=== PATIENT | female | born 2000 | race Caucasian/White ===

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

== ENCOUNTER 2023-11-19 12:36 | Emergency (ER) | payer MEDICAID ==
[2023-11-19 13:29] LABS: COLOR,URINE YELLOW; GLUCOSE,URINE NEGATIVE (NEGATIVE); KETONES,URINE >=80 mg/dL (NEGATIVE); LEUKOCYTE ESTERASE,URINE NEGATIVE (NEGATIVE); NITRITE,URINE NEGATIVE (NEGATIVE); OCCULT BLOOD,URINE NEGATIVE (NEGATIVE); PROTEIN,URINE TRACE mg/dL (NEGATIVE)
[2023-11-19 13:35] LABS: APPEARANCE,URINE HAZY; BILIRUBIN,URINE SMALL (NEGATIVE)
[2023-11-19 13:39] LABS: BACTERIA,URINE 1+ (NEGATIVE); EPITHELIAL CELLS,URINE FEW (NONE-FEW); MUCUS,URINE MODERATE (NONE-MOD); RBC,URINE 0-1 (0-2/HPF); WBC,URINE NONE SEEN (0-5/HPF)
[2023-11-19] MEDS: Ondansetron 4 MG Tab.DIS PO ONE (14:21)
== END 2023-11-19 14:37 | disposition home or self-care (01) ==
LOC: MW.ED 12:36
DX: O21.9 Vomiting of pregnancy, unspecified (principal); O10.019 Pre-existing essential hypertension complicating pregnancy, unspecified trimester; Z3A.00 Weeks of gestation of pregnancy not specified; Z91.040 Latex allergy status
CPT/HCPCS: 81001; 81025; 99284; A9270

== ENCOUNTER 2023-11-23 08:37 | Emergency (ER) | payer MEDICAID ==
[2023-11-23] MEDS ORDERED: Sodium Chloride 0.9% 10 ML Syringe FLUSH PRN (09:40)
[2023-11-23] MEDS ORDERED: Sodium Chloride 0.9% 2.5 ML Syringe FLUSH PRN (09:40)
[2023-11-23] MEDS: Sodium Chloride 0.9% 1,000 ML IV ONE (10:11)
[2023-11-23 10:25] LABS: BASOPHILS ABSOLUTE AUTO 0.02 K/uL (0.00-0.20); BASOPHILS PERCENT AUTO 0.2 % (0.0-1.0); EOSINOPHILS ABSOLUTE AUTO 0.07 K/uL (0.00-0.45); EOSINOPHILS PERCENT AUTO 0.6 % (0.0-6.0); HEMATOCRIT 35.6 % (37.0-47.0); HEMOGLOBIN 11.6 g/dL (12.0-16.0); IMMATURE GRAN ABSOLUTE AUTO 0.04 K/uL (0.00-0.05); IMMATURE GRAN PERCENT AUTO 0.3 % (0.0-0.4); LYMPHOCYTES ABSOLUTE AUTO 2.16 K/uL (1.00-4.80); LYMPHOCYTES PERCENT AUTO 18.7 % (24.0-44.0); MEAN CORPUSCULAR HEMOGLOBIN 28.2 pg (28.0-32.0); MEAN CORPUSCULAR HGB CONC 32.6 g/dL (32.0-36.0); MEAN CORPUSCULAR VOLUME 86.4 fL (83.0-99.0); MEAN PLATELET VOLUME 9.3 fL (9.4-12.3); MONOCYTES ABSOLUTE AUTO 0.54 K/uL (0.00-0.80); MONOCYTES PERCENT AUTO 4.7 % (0.0-8.0); NEUTROPHILS ABSOLUTE AUTO 8.73 K/uL (1.80-7.70); NEUTROPHILS PERCENT AUTO 75.5 % (41.0-71.0); PLATELET COUNT,PLT 314 K/uL (150-400); RED BLOOD CELL COUNT 4.12 M/uL (4.10-5.30); WHITE BLOOD CELL COUNT,WBC 11.56 K/uL (3.9-11.3)
[2023-11-23 11:24] LABS: A/G RATIO 0.8 (0.9-1.6); ALBUMIN 3.2 g/dL (3.4-5.0); BILIRUBIN TOTAL 0.3 mg/dL (0.2-1.0); CALCIUM 8.9 mg/dL (8.5-10.1); CARBON DIOXIDE,CO2 26.6 mmol/L (21.0-32.0); CREATININE 0.5 mg/dL (0.6-1.0); EST CRCL DRUG DOSING (CG) 171.62 mL/min; POTASSIUM,K 3.7 mmol/L (3.5-5.1)
[2023-11-23] MEDS: Lidocaine 1% 5 ML VIAL INJECT ONE (11:38)
[2023-11-23] MEDS: Cefdinir 300 MG Cap PO ONE (12:13)
[2023-11-23] MEDS: Ibuprofen 600 MG Tab PO ONE (12:13)
== END 2023-11-23 12:34 | disposition home or self-care (01) ==
LOC: MW.ED 08:37
DX: O99.711 Diseases of the skin and subcutaneous tissue complicating pregnancy, first trimester (principal); O10.011 Pre-existing essential hypertension complicating pregnancy, first trimester; K61.2 Anorectal abscess; Z3A.10 10 weeks gestation of pregnancy; Z91.040 Latex allergy status; Z75.8 Other problems related to medical facilities and other health care
CPT/HCPCS: 36415; 46040; 76882; 80053; 84702; 85025; 96360; 96361; 99283; A9270; J7030; J3490

== ENCOUNTER 2023-11-28 15:48 | Emergency (ER) | payer MEDICAID ==
[2023-11-28] MEDS: Acetaminophen/HYDROcodone 325-5 MG Tab PO ONE (17:57)
== END 2023-11-28 18:01 | disposition home or self-care (01) ==
LOC: MW.ED 15:48
DX: L02.31 Cutaneous abscess of buttock (principal); I10 Essential (primary) hypertension; Z91.040 Latex allergy status
CPT/HCPCS: 99283; A9270